=== PATIENT | female | born 1995 | race Caucasian/White ===

== ENCOUNTER 2017-04-14 15:54 | Emergency (ER) | payer BC ==
[~2017-04-14] VITALS: Ht 2.5 cm; Wt 56.7 kg
[2017-04-14] MEDS ORDERED: NS(*) 0.9% 1000 ML BAG 1,000 ML IV ONE (16:06)
--- NOTE | 2017-04-14 16:12 | ER Report ---
History and Physical Time Seen By MD: 15:59 Hx. of Stated Complaint: pain in L subclavian neck area, nausea, dizziness, tingling entire face, numbness and tingling down arms HPI/ROS CHIEF COMPLAINT: Left-sided chest pain, felt like was going to pass out HISTORY OF PRESENT ILLNESS: 21-year-old female patient presents to the emergency room with complaint of left-sided chest pain and felt like she is going to pass out. Patient states that she was driving to [place] when she developed this pain to the left side of her chest, patient states that it feels like it is deep to the clavicle. She states that she had some tunnel vision. She felt like she was going to pass out. She states that she has had this happen previously. She states that prior to today it has only happened when she is exercising. She states that she typically has that improve after she rests for 5-10 minutes. She denies having any fevers, chills, nausea, vomiting or diarrhea. She states that she has been seen for this previously. She states they did chest x-ray and was sent to her. She states that she does have a family history of factor V Leiden for which she's been tested and was negative. Patient reports worsening pain with deep inspiration. REVIEW OF SYSTEMS: Respiratory: No cough, no dyspnea. Cardiovascular: As noted above Gastrointestinal: No vomiting, no abdominal pain. Musculoskeletal: No back pain. Allergies: Coded Allergies: spironolactone (Verified Allergy, Mild, hives, 04/14/17) Sulfa (Sulfonamide Antibiotics) (Unverified Allergy, Unknown, 07/02/14) Home Meds No Active Prescriptions or Reported Meds Past Medical/Surgical History Patient has a past medical history of asthma. Patient has a surgical history of tonsillectomy, wisdom teeth removal. Patient has a family medical history of blood clotting disorder. Reviewed Nurses Notes: Yes Hx Smoking: No Smoking Status: Never Smoker Exposure to Second Hand Smoke?: No Constitutional Vital Sign - Last 24 Hours 04/14/17 04/14/17 04/14/17 04/14/17 15:54 15:56 15:58 16:00 Temp 98.6 Pulse ??? 71 Resp 16 B/P (MAP) 121/88 121/88 (99) 121/84 (96) Pulse Ox 98 O2 Delivery Room Air 04/14/17 04/14/17 04/14/17 04/14/17 16:09 16:15 16:24 16:30 Pulse 70 68 Resp 10 14 B/P (MAP) 108/68 (81) 112/74 (87) Pulse Ox 94 96 04/14/17 04/14/17 04/14/17 04/14/17 16:39 16:45 16:54 17:00 Pulse 75 75 Resp 14 14 B/P (MAP) 98/69 (79) 111/67 (82) Pulse Ox 99 98 04/14/17 04/14/17 04/14/17 04/14/17 17:09 17:15 17:24 17:30 Pulse ??? 77 Resp 23 B/P (MAP) 114/64 (81) 90/71 (77) Pulse Ox 98 04/14/17 04/14/17 04/14/17 04/14/17 17:39 17:45 17:50 17:55 Pulse 68 67 70 Resp 24 8 11 B/P (MAP) 109/73 (85) Pulse Ox 94 98 94 04/14/17 04/14/17 04/14/17 04/14/17 18:00 18:05 18:10 18:15 Pulse 66 67 71 65 Resp 15 12 11 15 B/P (MAP) 113/66 (82) 106/74 (85) Pulse Ox 95 97 97 04/14/17 18:20 Pulse 73 Resp 23 Intake and Output 04/14/17 04/14/17 04/15/17 15:00 23:00 07:00 Intake Total 1000 ml Balance 1000 ml Physical Exam General Appearance: The patient is alert, has no immediate need for airway protection and no current signs of toxicity. ENT: Tympanic membranes are pearly-umana, auditory canals are patent, mucous membranes are moist. Respiratory: Chest is non tender, lungs are clear to auscultation. Cardiac: regular rate and rhythm Gastrointestinal: Abdomen is soft and non tender, no masses, bowel sounds normal. Musculoskeletal: Neck: Neck is supple and non tender. Extremities have full range of motion and are non tender. Skin: No rashes or lesions. DIFFERENTIAL DIAGNOSIS: After history and physical exam differential diagnosis was considered for chest pain including but not limited to myocardial ischemia, pericarditis pulmonary embolus, chest wall pain, pleural inflammation and pulmonary infectious causes. Medical Decision Making Data Points Result Diagram: 04/14/17 1621 04/14/17 1621 Laboratory Hematology Test 04/14/17 16:21 04/14/17 17:20 Red Blood Count 5.03 M/uL (4.17-5.56) Mean Corpuscular Volume 88.6 fL (80.0-96.0) Mean Corpuscular Hemoglobin 30.6 pg (26.0-33.0) Mean Corpuscular Hemoglobin Concent 34.5 g/dL (32.0-36.0) Red Cell Distribution Width 12.6 % (11.5-14.5) Mean Platelet Volume 9.8 fL (7.2-11.1) Neutrophils (%) (Auto) 73.5 % (39.4-72.5) Lymphocytes (%) (Auto) 20.0 % (17.6-49.6) Monocytes (%) (Auto) 5.6 % (4.1-12.4) Eosinophils (%) (Auto) 0.5 % (0.4-6.7) Basophils (%) (Auto) 0.4 % (0.3-1.4) Nucleated RBC Relative Count (auto) 0.0 /100WBC Neutrophils # (Auto) 4.4 K/uL (2.0-7.4) Lymphocytes # (Auto) 1.2 K/uL (1.3-3.6) Monocytes # (Auto) 0.3 K/uL (0.3-1.0) Eosinophils # (Auto) 0.0 K/uL (0.0-0.5) Basophils # (Auto) 0.0 K/uL (0.0-0.1) Nucleated RBC Absolute Count (auto) 0.00 K/uL D-Dimer Quantitative (PE/DVT) < 0.27 ug/ml (0-0.50) Sodium Level 141 mmol/L (137-145) Potassium Level 3.8 mmol/L (3.5-5.0) Chloride Level 103 mmol/L (98-107) Carbon Dioxide Level 24 mmol/L (22-31) Blood Urea Nitrogen 10 mg/dl (7-18) Creatinine 0.90 mg/dl (0.52-1.04) Glomerular Filtration Rate Calc > 60.0 Random Glucose 85 mg/dl (75-110) Calcium Level 9.4 mg/dl (8.4-10.2) Total Bilirubin 0.5 mg/dl (0.2-1.3) Aspartate Amino Transf (AST/SGOT) 32 U/L (0-35) Alanine Aminotransferase (ALT/SGPT) 26 U/L (0-56) Alkaline Phosphatase 62 U/L (0-126) Troponin I < 0.012 ng/ml Total Protein 7.4 gm/dl (6.3-8.2) Albumin 4.4 g/dl (3.5-5.0) Human Chorionic Gonadotropin, Qual Negative (NEGATIVE) Urine Color Straw Urine Clarity Slightly-cloudy Urine pH 8.0 pH (4.8-9.5) Urine Specific [place] 1.005 Urine Protein Negative mg/dL (NEGATIVE) Urine Glucose (UA) Negative mg/dL (NEGATIVE) Urine Ketones Negative mg/dL (NEGATIVE) Urine Blood Negative (NEGATIVE) Urine Nitrite Negative (NEGATIVE) Urine Bilirubin Negative (NEGATIVE) Urine Urobilinogen Negative mg/dL (0.2-1.9) Urine Leukocyte Esterase Small (NEGATIVE) Urine RBC <1 /HPF (0-2/HPF) Urine WBC 2 /HPF (0-5/HPF) Urine Squamous Epithelial Cells Many /LPF (</=FEW) Urine Renal Epithelial Cells Few /LPF (NONE-FEW) Urine Bacteria Few /HPF (NONE-FEW) Urine Mucus None /HPF (NONE-FEW) Chemistry Test 04/14/17 16:21 04/14/17 17:20 White Blood Count 5.9 k/uL (4.5-11.0) Red Blood Count 5.03 M/uL (4.17-5.56) Hemoglobin 15.4 g/dL (12.0-16.0) Hematocrit 44.6 % (34.0-47.0) Mean Corpuscular Volume 88.6 fL (80.0-96.0) Mean Corpuscular Hemoglobin 30.6 pg (26.0-33.0) Mean Corpuscular Hemoglobin Concent 34.5 g/dL (32.0-36.0) Red Cell Distribution Width 12.6 % (11.5-14.5) Platelet Count 206 K/uL (150-450) Mean Platelet Volume 9.8 fL (7.2-11.1) Neutrophils (%) (Auto) 73.5 % (39.4-72.5) Lymphocytes (%) (Auto) 20.0 % (17.6-49.6) Monocytes (%) (Auto) 5.6 % (4.1-12.4) Eosinophils (%) (Auto) 0.5 % (0.4-6.7) Basophils (%) (Auto) 0.4 % (0.3-1.4) Nucleated RBC Relative Count (auto) 0.0 /100WBC Neutrophils # (Auto) 4.4 K/uL (2.0-7.4) Lymphocytes # (Auto) 1.2 K/uL (1.3-3.6) Monocytes # (Auto) 0.3 K/uL (0.3-1.0) Eosinophils # (Auto) 0.0 K/uL (0.0-0.5) Basophils # (Auto) 0.0 K/uL (0.0-0.1) Nucleated RBC Absolute Count (auto) 0.00 K/uL D-Dimer Quantitative (PE/DVT) < 0.27 ug/ml (0-0.50) Glomerular Filtration Rate Calc > 60.0 Calcium Level 9.4 mg/dl (8.4-10.2) Total Bilirubin 0.5 mg/dl (0.2-1.3) Aspartate Amino Transf (AST/SGOT) 32 U/L (0-35) Alanine Aminotransferase (ALT/SGPT) 26 U/L (0-56) Alkaline Phosphatase 62 U/L (0-126) Troponin I < 0.012 ng/ml Total Protein 7.4 gm/dl (6.3-8.2) Albumin 4.4 g/dl (3.5-5.0) Human Chorionic Gonadotropin, Qual Negative (NEGATIVE) Urine Color Straw Urine Clarity Slightly-cloudy Urine pH 8.0 pH (4.8-9.5) Urine Specific [place] 1.005 Urine Protein Negative mg/dL (NEGATIVE) Urine Glucose (UA) Negative mg/dL (NEGATIVE) Urine Ketones Negative mg/dL (NEGATIVE) Urine Blood Negative (NEGATIVE) Urine Nitrite Negative (NEGATIVE) Urine Bilirubin Negative (NEGATIVE) Urine Urobilinogen Negative mg/dL (0.2-1.9) Urine Leukocyte Esterase Small (NEGATIVE) Urine RBC <1 /HPF (0-2/HPF) Urine WBC 2 /HPF (0-5/HPF) Urine Squamous Epithelial Cells Many /LPF (</=FEW) Urine Renal Epithelial Cells Few /LPF (NONE-FEW) Urine Bacteria Few /HPF (NONE-FEW) Urine Mucus None /HPF (NONE-FEW) Coagulation Test 04/14/17 16:21 D-Dimer Quantitative (PE/DVT) < 0.27 ug/ml Urinalysis Test 04/14/17 17:20 Urine Color Straw Urine Clarity Slightly-cloudy Urine pH 8.0 pH (4.8-9.5) Urine Specific [place] 1.005 Urine Protein Negative mg/dL (NEGATIVE) Urine Glucose (UA) Negative mg/dL (NEGATIVE) Urine Ketones Negative mg/dL (NEGATIVE) Urine Blood Negative (NEGATIVE) Urine Nitrite Negative (NEGATIVE) Urine Bilirubin Negative (NEGATIVE) Urine Urobilinogen Negative mg/dL (0.2-1.9) Urine Leukocyte Esterase Small (NEGATIVE) Urine RBC <1 /HPF (0-2/HPF) Urine WBC 2 /HPF (0-5/HPF) Urine Squamous Epithelial Cells Many /LPF (</=FEW) Urine Renal Epithelial Cells Few /LPF (NONE-FEW) Urine Bacteria Few /HPF (NONE-FEW) Urine Mucus None /HPF (NONE-FEW) EKG/Imaging EKG Interpretation 12 lead EKG: Rhythm: normal sinus rhythm with short [place] interval of 110 ms, with ventricular rate of 74 bpm [place]: normal QRS: normal ST segments: normal Imaging HISTORY: Chest discomfort DATE: 04/14/2017 4:06 PM TECHNIQUE: CHEST PA AND LAT COMPARISON: none FINDINGS: The cardiomediastinal silhouette is of normal size and contour. No pleural effusion. No pneumothorax. No consolidation. The lungs are adequately expanded. IMPRESSION: Normal chest. Report Dictated By: Liliana Guzmán MD at 04/14/2017 5:19 PM Report E-Signed By: Liliana Guzmán MD at 04/14/2017 5:22 PM ED Course/Re-evaluation ED Course Patient was admitted to an exam room, history and physical were obtained. Differential diagnoses were considered. On examination lungs are clear, heart is regular, patient was complaining of pain in the left upper shoulder, behind the clavicle. Patient had no tenderness with palpation. A CBC, CMP, troponin, EKG, chest x-ray, d-dimer were done. The labs were unremarkable, troponin d- dimer were both negative. Chest x-ray showed no acute cardiopulmonary processes. Patient was given a liter of normal saline. On reevaluation patient states she's feeling significant better. I discussed the findings of the lab results with the patient. We will go ahead and discharge patient home at this time. The biggest concern I had with the patient's history was she was having pain with exercise. As a result of that I will go ahead and order a stress test with the patient. She is to call and make an appointment with cardiopulmonary failure. We will have her continue her medication at this time. She is to return to emergency room if condition worsens. She is to follow-up with her primary care provider in the next week. Patient informed me that she did not have a primary care provider and so I did give her a list of the primary care provider in [place]. Patient verbalized understanding and agreement with plan. Decision to Disposition Date: Apr 14, 2017 Decision to Disposition Time: 18:19 Depart Departure Latest Vital Signs Vital Signs Date Time Temp Pulse Resp B/P (MAP) Pulse Ox O2 Delivery O2 Flow Rate FiO2 04/14/17 18:20 73 23 04/14/17 18:15 106/74 (85) 04/14/17 18:10 97 04/14/17 15:56 98.6 Room Air Impression: Primary Impression: Near syncope Condition: Improved Disposition: HOME OR SELF-CARE New Scripts No Active Prescriptions or Reported Meds Patient Instructions: Near Syncope (ED) Additional Instructions: Increase fluid intake. Get plenty of rest. Follow up with Cardiopulmonary to have a stress test. Follow up with a primary care provider to discuss results and make plan. Continue with normal exercise and diet. Return to the ER if condition worsens. MISSAEL CUELLAR Apr 14, 2017 16:12
--- NOTE | 2017-04-14 16:31 | EKG ---
FACILITY: [facility] - [place] PATIENT NAME: ZARINA DUNLAP : [id number] MR: [id number] V: [id number] EXAM DATE: ORDERING PHYSICIAN: MISSAEL CUELLAR TECHNOLOGIST: Test Reason : Blood Pressure : / mmHG Vent. Rate : 074 BPM Atrial Rate : 074 BPM P-R Int : 110 ms QRS Dur : 078 ms QT Int : 396 ms P-R-T Axes : 031 082 036 degrees QTc Int : 439 ms Sinus rhythm with short ME Otherwise normal ECG When compared with ECG of 14-APR-2017 16:08, No significant change was found Confirmed by MICHAEL JACKSON ([id number]) on 04/15/2017 7:44:58 AM Referred By: Confirmed By:MICHAEL JACKSON
[2017-04-14 16:35] LABS: PLATELET COUNT, AUTOMATED 206 K/uL (150-450)
--- NOTE | 2017-04-14 17:26 | RADIOLOGY IMAGING REPORT ---
FACILITY: [facility] PATIENT NAME: Nya Price : 1995 MR: [id number] V: [id number] EXAM DATE: ORDERING PHYSICIAN: MISSAEL CUELLAR TECHNOLOGIST: [place] [facility] [place]ya [place] : 1995 Visit/Account:[id number] Date of Sevice: 04/14/2017 HISTORY: Chest discomfort DATE: 04/14/2017 4:06 PM TECHNIQUE: CHEST PA AND LAT COMPARISON: none FINDINGS: The cardiomediastinal silhouette is of normal size and contour. No pleural effusion. No pne umothorax. No consolidation. The lungs are adequately expanded. IMPRESSION: Normal chest. Report Dictated By: Liliana Guzmán MD at 04/14/2017 5:19 PM Report E-Signed By: Liliana Guzmán MD at 04/14/2017 5:22 PM WSN:[id number]
[2017-04-14 18:15] VITALS: BP 106/74
== END 2017-04-14 18:25 | disposition home or self-care (01) ==
LOC: ER 15:56
DX: R55 Syncope and collapse (principal)
CPT/HCPCS: 71046; 81001; 84484; 84703; 85025; 85379; 93005; 96360; 96361; 99284; J7030; 82040; 82247; 82310; 82374; 82435; 82565; 82947; 84075; 84132; 84155; 84295; 84450; 84460; 84520

== ENCOUNTER → 2017-04-14 | Outpatient (CLI) | payer BC | LOC: AMB 15:19 | PROVIDERS: ATTEND Nurse Practitioner | DX: M54.2 Cervicalgia (principal); R20.0 Anesthesia of skin | CPT/HCPCS: A0425; A0427 ==

== ENCOUNTER → 2017-04-28 | Outpatient (CLI) | payer BC ==
--- NOTE | 2017-04-28 16:52 | RT STRESS TEST REPORT ---
FACILITY: [facility] [place] PATIENT NAME: ZARINA DUNLAP : [id number] MR: [id number] V: [id number] EXAM DATE: ORDERING PHYSICIAN: MISSAEL CUELLAR TECHNOLOGIST: Mayur Acquisition Time: 2017-04-28 14:05:36 Total Exercise Time: 00:10:05 Test Indications: Chest Pain / Discomfort Medications: None Protocol: BRUCE2 Max HR: 190 BPM 95% of Pred: 198 BPM Max BP: 165/079 mmHG Max Work Load: 11.8 METS Confirmed by MICHAEL JACKSON ([id number]) on 04/28/2017 4:52:29 PM Referred By: Yin Salcedo Overread By: MICHAEL JACKSON
== END ==
LOC: RESP 13:56
PROVIDERS: ATTEND Nurse Practitioner Family
DX: R55 Syncope and collapse (principal); R07.9 Chest pain, unspecified
CPT/HCPCS: 93017

== ENCOUNTER → 2017-06-01 | Outpatient (CLI) | payer BC ==
[~2017-06-01] MED LIST: IOPAMIDOL 76% 75 ML INFUS BTL 75 ML ONE; NS 0.9% 150 ML BAG 150 ML ONE
--- NOTE | 2017-06-01 10:24 | RADIOLOGY IMAGING REPORT ---
FACILITY: [facility] [place] PATIENT NAME: Nya Price : 1995 MR: [id number] V: [id number] EXAM DATE: ORDERING PHYSICIAN: MIGUEL LAND TECHNOLOGIST: Location: [facility] [place] Patient: Nya Price : 1995 Visit/Account:[id number] Date of Sevice: 06/01/2017 CTA NECK/CAROTIDS W W/O CONTR Provided history: ? thoracic outlet sydrome - sx of carotid occlusion Additional pertinent history: none TECHNIQUE: Overlapping thin sections were obtained during a bolus of IV contrast from the aortic arch through th e upper neck. Reconstruction of the source data set includes multiplanar 2D in the sagittal and coron al planes, and 3D coronal thin slab MIP series. Orthotic Fitter images have been stored on PACS. Stenosis calculations are performed using the NASCET criteria (the diameter of the stenotic segment d ivided by the diameter of a normal distal segment of internal carotid artery, where parker are paralle l, then subtracted from 1) Contrast: 75 ml Isovue 370 One of the following dose optimization techniques was utilized in the performance of this exam: Autom ated exposure control; adjustment of the mA and/or kV according to the patient's size; or use of an i terative reconstruction technique. Specific details can be referenced in the facility's radiology C T exam operational policy. COMPARISON STUDIES: none FINDINGS: Angiographic findings: Aortic arch and great vessels: Negative. Right CCA / ICA: Negative. Left CCA / ICA: Negative. Vertebro-basilar: Negative. Other: Pertinent to the presentation, this exam has a very limited field of view but does include t he thoracic outlet at least partially. Both subclavian arteries are of normal caliber as they cross over the first rib to become the axillary arteries. No focal stenosis. It appears the arms are down for this exam. No arm up series obtained. Additional non-angiographic findings: none significant IMPRESSION: Negative exam. See above comments. If there are clinical signs or symptoms of true thoracic outlet syndrome with the arms raised, patient might benefit from confirmation with MRA to avoid further radi ation. Report Dictated By: Gonzalo Orozco MD at 06/01/2017 10:05 AM Report E-Signed By: Gonzalo Orozco MD at 06/01/2017 10:20 AM WSN:[id number]
== END ==
LOC: CT 03:09
PROVIDERS: ATTEND Nurse Practitioner Family
DX: R55 Syncope and collapse (principal); M54.2 Cervicalgia
CPT/HCPCS: 70498; Q9967

== ENCOUNTER → 2017-07-07 | Outpatient (CLI) | payer BC ==
[~2017-07-07] MED LIST changes: +CLIN25GE TP; +DOXY20PT PO; +GADOBENATE 529MG/1ML 15ML VIAL IVP ONE; -IOPAMIDOL 76% 75 ML INFUS BTL 75 ML ONE; +NORE0.3529 PO; -NS 0.9% 150 ML BAG 150 ML ONE; +NS 0.9% 20 ML SDV 40 ML ONE
--- NOTE | 2017-07-10 10:04 | RADIOLOGY IMAGING REPORT ---
FACILITY: [facility] PATIENT NAME: Nya Price : 1995 MR: [id number] V: [id number] EXAM DATE: ORDERING PHYSICIAN: MIGUEL LAND TECHNOLOGIST: Location: [facility] Patient: Nya Price : 1995 Visit/Account:[id number] Date of Sevice: 07/07/2017 EXAMINATION: MRA of the neck without IV contrast MRA of the neck with IV contrast Additional Pertinent history: Concern for thoracic outlet syndrome COMPARISON STUDIES: CTA Neck 06/01/2017 TECHNIQUE: A preliminary fat suppressed axial sequence was obtained in the mid-upper neck (for asses sment of dissection) followed by non-gadolinium enhanced 3D-time of flight angiography in the axial p dc on the carotid bifurcations. The patient received a bolus of intravenous gadolinium during which coronal 3D-time of flight angiography was performed from the aortic arch through the [place] of [place] s. Stenosis calculations are performed using the NASCET criteria (the diameter of the stenotic segment d ivided by the diameter of a normal distal segment of internal carotid artery, where parker are paralle l, then subtracted from 1) 3D and 2D sagittal and coronal reformatted images were obtained form the source data. Advanced Quality Engineer images have been stored on PACS. Contrast: 13 mL of IV MultiHance FINDINGS: Angiographic Findings: Aortic arch / great vessel origins: Suboptimally evaluated due to poor [id number] ratio, pulsati on artifact and flow related artifact. Right cervical carotid: Negative Left cervical carotid: Negative. Vertebrals / basilar: negative. [place]: negative. Non-angiographic Findings: None significant. IMPRESSION: The vessels at the thoracic inlet are suboptimally evaluated due to artifact and are essentially nond iagnostic. The arteries in the neck appear normal. Report Dictated By: Fernando Black MD at 07/10/2017 9:50 AM Report E-Signed By: Fernando Black MD at 07/10/2017 10:00 AM WSN:[email or web address]
== END ==
LOC: MRI 03:39
PROVIDERS: ATTEND Nurse Practitioner Family
DX: R55 Syncope and collapse (principal); R07.9 Chest pain, unspecified
CPT/HCPCS: 70549; A9577; J7050

== ENCOUNTER 2017-12-19 08:00 | Outpatient (RCR) | payer BC ==
--- NOTE | 2017-12-19 15:09 | RADIOLOGY IMAGING REPORT ---
FACILITY: [facility] PATIENT NAME: Nya Price : 1995 MR: [id number] V: [id number] EXAM DATE: ORDERING PHYSICIAN: SUSIE CANSECO TECHNOLOGIST: Location: [facility] Patient: Nya Price : 1995 Visit/Account:[id number] Date of Sevice: 12/19/2017 PELVIC HISTORY: IUD, pelvic pain TECHNIQUE: Transvaginal transabdominal ultrasound pelvis. COMPARISON: None. FINDINGS: Uterus: ; 9 cm length x 3.4 cm AP x 5.8 cm transverse. Myometrium: Please see below discussion. Endometrium: IUD is noted within the endometrial canal. The left arm of the IUD however is seen prot ruding into the myometrium towards the left; double thickness 9.2 mm. Cervix: Grossly negative. Ovaries: Right - 2.6 x 2.1 x 1.9 cm Left - 3.5 x 1.9 x 2.6 Blood flow is documented in each ovary by duplex Doppler ultrasound. Adnexa: Grossly unremarkable. Free pelvic fluid: Mild. IMPRESSION: IUD is noted within the endometrial canal however the left arm of the IUD is seen protruding into the myometrium towards the left Report Dictated By: Esthela Stephenson MD at 12/19/2017 2:54 PM Report E-Signed By: Esthela Stephenson MD at 12/19/2017 3:03 PM WSN:[email or web address]
--- NOTE | 2017-12-19 15:09 | RADIOLOGY IMAGING REPORT ---
FACILITY: [facility] - [place] PATIENT NAME: Nya Price : 1995 MR: [id number] V: [id number] EXAM DATE: ORDERING PHYSICIAN: SUSIE CANSECO TECHNOLOGIST: Location: [facility] Patient: Nya Price : 1995 Visit/Account:[id number] Date of Sevice: 12/19/2017 KIDNEYS EXAMINATION: Renal ultrasound. History: IUD, pelvic pain COMPARISON STUDIES: FINDINGS: Kidneys: Right kidney- 11.2 x 4.8 x 5.4 cm Left kidney- 10.8 x 5.6 x 5 cm Uniform and symmetric blood flow in each kidney by Doppler ultrasound. Hydronephrosis: none Resistive index on the right 0.6 on the left 0.52 Bladder: Urinary bladder prevoid volume 690 mL and postvoid residual 15 mL. Bilateral ureteral jets are present Abdominal aorta and IVC: Aorta and IVC are patent by Doppler ultrasound. IMPRESSION: Unremarkable renal ultrasound Report Dictated By: Esthela Stephenson MD at 12/19/2017 3:04 PM Report E-Signed By: Esthela Stephenson MD at 12/19/2017 3:05 PM WSN:[email or web address]
== END 2017-12-19 18:00 | disposition home or self-care (01) ==
LOC: US 08:00 → EDSTATUS 13:44 → US 18:00
PROVIDERS: ATTEND Urology
DX: Z30.431 Encounter for routine checking of intrauterine contraceptive device (principal); N39.0 Urinary tract infection, site not specified; R10.84 Generalized abdominal pain
CPT/HCPCS: 76705; 76830; 76856

== ENCOUNTER → 2017-12-19 | Outpatient (REF) | payer BC ==
[~2017-12-19] MED LIST changes: -GADOBENATE 529MG/1ML 15ML VIAL IVP ONE; -NS 0.9% 20 ML SDV 40 ML ONE
== END ==
LOC: ZZSENDIN 16:18
PROVIDERS: ATTEND Urology
DX: N39.0 Urinary tract infection, site not specified (principal); R10.84 Generalized abdominal pain
CPT/HCPCS: 81001; 87088